=== PATIENT | female | born 1995 | race Caucasian/White ===

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

== ENCOUNTER → 2017-12-11 | Outpatient (CLI) | payer BC, MEDICAID ==
[~2017-12-11] MED LIST: ACET-2469 PO; CALC300T4 PO; DOCU-143 PO; FERR325T18 PO; HYDR-3729 PO; IBUP-1773 PO; LEVO25TA2 PO; PREN1TAB86 PO
--- NOTE | 2017-12-11 14:40 | Diagnostic Imaging Report ---
INDICATION: Mirena. Pain. COMPARISON: None. PROCEDURE: Real-time grayscale and color Doppler ultrasound of the pelvis is performed transabdominally and endovaginally. FINDINGS: The uterus measures 6.8 cm x 4 cm x 2.8 cm. Endometrium measures about 3 mm in thickness. There is an intrauterine device present which appears to be in good position within the endometrium. The right ovary measures 3.5 cm x 1.4 cm x 2.2 cm and appears unremarkable. The left ovary is not identified. There is no free fluid. IMPRESSION: 1. Mirena device appears to be in good position in the endometrium. 2. No abnormality is seen. The left ovary is not visualized. Dictated by: Dictated on workstation # [id number]
== END ==
LOC: RAD 09:49
PROVIDERS: ATTEND Obstetrics & Gynecology
DX: Z30.431 Encounter for routine checking of intrauterine contraceptive device (principal); R10.32 Left lower quadrant pain
CPT/HCPCS: 76830; 76856

== ENCOUNTER 2022-05-26 20:08 | Emergency (ER) | payer MEDICAID ==
[~2022-05-26] VITALS: Ht 162.5 cm; Wt 61.6 kg
[~2022-05-26 20:08] MED LIST changes: -ACET-2469 PO; +ACET-3075 PO
--- NOTE | 2022-05-26 22:07 | ED General ---
General Chief Complaint: Dizziness/Syncope Stated Complaint: DIZZY - HIGH BP - WEAKNESS Nursing Triage Note: pt ambulatory to room. pt states she has enlarged thyroid with 4 goiters, so she has not been eating or drinking well since december. pt states last week she started feeling dizzy and lightheaded. pt states she started having diarrhea this am and started having lightheadedness and palpitation when she stands up. pt states she tested for covid this am and it was negative Source of Information: Patient Exam Limitations: No Limitations History of Present Illness Date Seen by Provider: May 26, 2022 Time Seen by Provider: 21:58 Initial Comments Patient is a 26-year-old female history of thyroid disorder who presents to the emergency room with a chief complaint of feeling dizzy, lightheaded over the course of the last couple of days. She complains of diarrhea that started way early this morning. She feels "palpitations" when she stands up. She has not had a syncopal event. 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 She tested herself for COVID this morning and it was negative. She is not vaccinated. Patient states that she has a new patient appointment with an industrial maintenance millwright tomorrow at [place], Dr. Angel. She has had multiple evaluations of her thyroid gland including scopes and ultrasounds. She is currently on no medications. She has implanted control, Mirena. She states she has had issues with her calcium in the past. No muscle spasms today. No chest pain, shortness of breath. No nausea, vomiting or diarrhea. She states she has not really been able to eat anything since December due to the goiter. She does not take anything for pain. All other review of systems reviewed and negative except as stated Timing/Duration: 2-3 Days Severity: Moderate Associated Systoms: Malaise, Weakness, Other (palpitations, dizziness) Allergies and Home Medications Allergies Coded Allergies: No Known Drug Allergies (Unverified , 12/28/16) Patient Home Medication List Home Medication List Reviewed: Yes Calcium Carbonate (Tums) 300 Mg Tab.chew, 300 MG PO Q6H, (Reported) Entered as Reported by: SHARYN HILLS on 12/28/16 112 Docusate Sodium (Colace) 100 Mg Capsule, 100 MG PO BID PRN for CONSTIPATION Prescribed by: HENRRY GARCIA on 12/29/162052 Ferrous Sulfate (Ferrous Sulfate) 325 Mg Tablet, 325 MG PO BID Prescribed by: HENRRY GARCIA on 12/30/16 0813 Hydrocodone/Acetaminophen (Lortab 5-325 mg Tablet) 1 Each Tablet, 1-2 EACH PO Q4H PRN for PAIN Prescribed by: HENRRY GARCIA on 12/29/162052 Ibuprofen (Ibuprofen) 600 Mg Tablet, 600 MG PO Q6H Prescribed by: HENRRY GARCIA on 12/29/162052 Vit W-Ca,Fe,FA(<1 mg) ( Vitamins) 1 Each Tablet, 1 EACH PO DAILY, (Reported) Entered as Reported by: SHARYN HILLS on 12/28/16 1120 Review of Systems Review of Systems Constitutional: see HPI EENTM: throat pain, throat swelling Respiratory: no symptoms reported Cardiovascular: palpitations Gastrointestinal: diarrhea Genitourinary: no symptoms reported : No Musculoskeletal: no symptoms reported Skin: no symptoms reported Psychiatric/Neurological: Weakness, Other (dizziness) All Other Systems Reviewed Negative Unless Noted: Yes Past Tmhprsb-Hlufai-Judwfr Hx Patient Social History Tobacco Use?: Yes Tobacco type used: Cigarettes Smoking Status: Current Everyday Smoker Use of E-Cig and/or Vaping dev: No Substance use?: No Alcohol Use?: No Immunizations Up To Date Tetanus Booster (TDap): Less than 5yrs PED Vaccines UTD: Yes Influenza Vaccine Up-to-Date: No; Not Current Seasonal Allergies Seasonal Allergies: No Past Medical History Surgeries: Yes Respiratory: Yes (Childhood Asthma) Asthma Cardiac: No Neurological: No Female Reproductive Disorders: Menstrual Problems Sexually Transmitted Disease: Yes (Chlamydia SANAZ negative ) HIV/AIDS: No Genitourinary: No Gastrointestinal: No Musculoskeletal: No Endocrine: Yes HEENT: No Loss of Vision: Denies Hearing Impairment: Denies Cancer: No Psychosocial: No Integumentary: No Blood Disorders: No Adverse Reaction/Blood Tranf: No Family Medical History Completed stroke Grandparents (Paternal Grandfather) Diabetes mellitus Grandparents (Maternal Grandmother) Hypertension Grandparents (Paternal Grandmother) Myocardial infarction Grandparents (Paternal Grandfather) Respiratory disorder Grandparents (Paternal Grandfather-COPD) Thyroid disease Grandparents (Paternal Grandmother?) Physical Exam Vital Signs Vital Signs - First Documented 05/26/22 21:00 Temp 36.3 Pulse 78 Resp 22 B/P (MAP) 117/70 (86) Pulse Ox 100 Capillary Refill : Height, Weight, BMI Height: 5'3.00" Weight: 156lbs. 0.0oz. [id number]; 23.00 BMI Method: General Appearance: No Apparent Distress, WD/WN Eyes: Bilateral Eye Normal Inspection, Bilateral Eye PERRL, Bilateral Eye EOMI HEENT: PERRL/EOMI Neck: Thyromegaly Respiratory: Lungs Clear, Normal Breath Sounds, No Accessory Muscle Use, No Respiratory Distress Cardiovascular: Regular Rate, Rhythm, Normal Peripheral Pulses Gastrointestinal: Normal Bowel Sounds, Non Tender, Soft Extremity: Normal Capillary Refill, Normal Inspection, Normal Range of Motion, Non Tender Neurologic/Psychiatric: Alert, Oriented x3, No Motor/Sensory Deficits, Normal Mood/Affect, retort kiln burner II-XII Norm as Tested Skin: Normal Color, Warm/Dry Progress/Results/Core Measures Suspected Sepsis SIRS Temperature: Pulse: 78 Respiratory Rate: 22 Blood Pressure 117 /70 Mean: 86 Laboratory Tests 05/26/22 21:13: Creatinine 0.74, Total Bilirubin 0.8 Results/Orders Lab Results Laboratory Tests Test 05/26/22 21:13 05/26/22 22:26 Range/Units Sodium Level 138 135-145 MMOL/L Potassium Level 3.7 3.6-5.0 MMOL/L Chloride Level 103 98-107 MMOL/L Carbon Dioxide Level 22 21-32 MMOL/L Anion Gap 13 5-14 MMOL/L Blood Urea Nitrogen 8 7-18 MG/DL Creatinine 0.74 0.60-1.30 MG/DL Estimat Glomerular Filtration Rate 116 BUN/Creatinine Ratio 11 Glucose Level 82 70-105 MG/DL Calcium Level 9.7 8.5-10.1 MG/DL Corrected Calcium 8.5-10.1 MG/DL Total Bilirubin 0.8 0.1-1.0 MG/DL Aspartate Amino Transf (AST/SGOT) 19 5-34 U/L Alanine Aminotransferase (ALT/SGPT) 14 0-55 U/L Alkaline Phosphatase 83 40-136 U/L Total Protein 8.3 H 6.4-8.2 GM/DL Albumin 4.8 H 3.2-4.5 GM/DL Urine Color YELLOW Urine Clarity CLEAR Urine pH 6.0 5-9 Urine Specific Milligan >=1.030 1.016-1.022 Urine Protein TRACE H NEGATIVE Urine Glucose (UA) NEGATIVE NEGATIVE Urine Ketones 1+ H NEGATIVE Urine Nitrite NEGATIVE NEGATIVE Urine Bilirubin 1+ H NEGATIVE Urine Urobilinogen 0.2 < = 1.0 MG/DL Urine Leukocyte Esterase NEGATIVE NEGATIVE Urine RBC (Auto) NEGATIVE NEGATIVE Urine RBC NONE /HPF Urine WBC NONE /HPF Urine Squamous Epithelial Cells 10-25 H /HPF Urine Crystals NONE /LPF Urine Bacteria MODERATE H /HPF Urine Casts NONE /LPF Urine Mucus LARGE H /LPF Urine Culture Indicated YES My Orders Orders - HELEN ALEXANDRE MD Ed Iv/Invasive Line Start (05/26/22 22:05) Comprehensive Metabolic Panel (05/26/22 22:05) Urine Bedside (05/26/22 22:05) Ns Iv 1000 Ml (Sodium Chloride 0.9%) (05/26/22 22:15) Ua Culture If Indicated (05/26/22 22:34) Urine Culture (05/26/22 22:26) Vital Signs/I&O 05/26/22 21:00 Temp 36.3 Pulse 78 Resp 22 B/P (MAP) 117/70 (86) Pulse Ox 100 Capillary Refill : Blood Pressure Mean: 86 Progress Note : Time: 23:10 Progress Note Patient reevaluated, she has about 300 cc of fluids left. She is feeling improved. Her urine is quite concentrated reflecting some degree of dehydration secondary to her inability to eat and drink normally due to the pain in her thyroid. Chemistry is normal, calcium is normal. I talked about [id number] children's Tylenol or ibuprofen, we talked about the volume of medication she would need to take for pain. She thinks that she can hold down liquids. I advised her to keep her appointment with Dr. Power tomorrow. Return precautions discussed. All questions are sought and answered. Departure Impression Primary Impression: Dehydration Additional Impression: Thyroid goiter Disposition: 01 HOME, SELF-CARE Condition: Stable Departure-Patient Inst. Decision time for Depature: 23:11 Referrals: NO,LOCAL PHYSICIAN (PCP/Family) Primary Care Physician Patient Instructions: Dehydration, Adult ED Add. Discharge Instructions: You can take efup-fti-buttnnk liquid children's ibuprofen -it is 100 mg/tsp. You would need 6 teaspoons to get an adult dose. Children's Tylenol is 160 mg/tsp. You would need 6-1/4 teaspoons of this to get 1000 mg. You can take each of these medications every 6 hours with food as needed for pain. Try and push oral fluids. Keep your follow-up appointment with Dr. Morgan tomorrow. Return to the emergency department for any new, concerning or emergent complaints. HELEN ALEXANDRE MD May 26, 2022 22:07
[2022-05-26 22:15] LABS: ALBUMIN 4.8 GM/DL (3.2-4.5); CHLORIDE 103 MMOL/L (98-107); POTASSIUM 3.7 MMOL/L (3.6-5.0); SODIUM 138 MMOL/L (135-145)
[2022-05-26] MEDS ORDERED: NS IV 1000 ML 1,000 ML IV SCH (22:15)
[2022-05-26 22:16] LABS: CALCIUM 9.7 MG/DL (8.5-10.1)
[2022-05-26 22:17] LABS: GLUCOSE 82 MG/DL (70-105)
[2022-05-26 22:18] LABS: TOTAL PROTEIN 8.3 GM/DL (6.4-8.2)
[2022-05-26 22:19] LABS: BILIRUBIN,TOTAL 0.8 MG/DL (0.1-1.0); CARBON DIOXIDE 22 MMOL/L (21-32)
[2022-05-26 22:21] LABS: ALKALINE PHOSPHATASE 83 U/L (40-136); CREATININE SERUM 0.74 MG/DL (0.60-1.30); GFR ESTIMATED 116
[2022-05-26 22:22] LABS: BUN/CREATININE RATIO 11
[2022-05-26 22:24] LABS: ALANINE AMINOTRANSFERASE 14 U/L (0-55)
[2022-05-26 22:40] LABS: CLARITY,URINE CLEAR; COLOR,URINE YELLOW; GLUCOSE, URINE (UA) NEGATIVE (NEGATIVE); KETONES,URINE 1+ (NEGATIVE); LEUKOCYTE ESTERASE ,URINE NEGATIVE (NEGATIVE); NITRITE,URINE NEGATIVE (NEGATIVE); PROTEIN,URINE TRACE (NEGATIVE)
[2022-05-26 22:50] LABS: BACTERIA,URINE MODERATE /HPF; BILIRUBIN,URINE 1+ (NEGATIVE)
[2022-05-26 23:25] VITALS: BP 98/73
== END 2022-05-26 23:25 | disposition home or self-care (01) ==
LOC: EDUNIT# 20:08 → ER 20:11
DX: E04.9 Nontoxic goiter, unspecified (principal); E86.0 Dehydration; F17.210 Nicotine dependence, cigarettes, uncomplicated; Z28.310 Unvaccinated for COVID-19
CPT/HCPCS: 36415; 80053; 81000; 84703; 87088